=== PATIENT | female | born 1990 | race Caucasian/White ===

== ENCOUNTER 2023-09-14 17:31 | Inpatient (IN) | payer BC, SELFPAY ==
[2023-09-14 17:52] VITALS: BP 139/85; BMI 26.6
[2023-09-14] MEDS: LR 1000 IV (18:23)
[2023-09-14] MEDS: PENICILLIN 110 UNITS IV (18:23)
[2023-09-14 18:24] LABS: % Basophils 0.5 % (0-2); % Eosinophils 0.2 % (0-6); % Immature Granulocytes 0.3 % (0-0.5); % Lymphocytes 15.5 % (20.5-51.1); % Monocytes 5.6 % (1.7-9.3); % Neutrophils 77.9 % (42.2-75.2); Absolute Basophils 0.1 10^3/uL (0-0.2); Absolute Lymphocytes 1.7 10^3/uL (1.2-3.4); Absolute Monocytes 0.6 10^3/uL (0.1-0.6); Absolute Neutrophils 8.4 10^3/uL (1.4-6.5); Hematocrit 34.6 % (37.0-47.0); Hemoglobin 12.5 g/dL (12.0-16.0); Mean Corp Hgb Conc. 36.1 g/dL (33.0-37.0); Mean Corpuscular Hgb 30.2 pg (27.0-31.0); Mean Corpuscular Volume 83.6 fL (81.0-99.0); Mean Platelet Volume 10.5 fL (7.4-10.4); Nucleated Red Blood Cells % 0 %; Platelet Count 216 10^3/uL (130-400); Red Blood Cell Count 4.14 10^6/uL (4.20-5.40); White Blood Cell Count 10.8 10^3/uL (4.8-10.8)
[2023-09-14 18:55] LABS: ALT (SGPT) 14 U/L (0-35); AST (SGOT) 22 U/L (14-36); Albumin 3.7 g/dl (3.5-5.0); Alkaline Phosphatase 156 U/L (38-126); Blood Urea Nitrogen 8 mg/dl (7-17); Calcium 9.1 mg/dl (8.4-10.2); Estimated Creatinine Clearance 115 ml/min; Glucose 86 mg/dl (70-99); Total Bilirubin 0.5 mg/dl (0.2-1.3); Total Protein 6.7 g/dl (6.3-8.2); eGFR > 60.00
[2023-09-14 19:16] LABS: Carbon Dioxide 18 mmol/L (22-30); Chloride 105 mmol/L (98-107); Potassium 3.6 mmol/L (3.5-5.1); Sodium 132 mmol/L (135-145)
[2023-09-14] MEDS: SUBLIMAZE 100 MCG EPIDURAL (19:26)
[2023-09-15] MEDS: MOTRIN 600 MG PO ×3 (04:52→20:51)
[2023-09-15 05:03] LABS: Hematocrit 33.1 % (37.0-47.0); Hemoglobin 11.5 g/dL (12.0-16.0)
[2023-09-15] MEDS: TYLENOL 650 MG PO (14:24)
[2023-09-15] MEDS: PRENATAL PLUS PO (14:24)
[2023-09-15 14:34] LABS: Syphilis/T. pallidum Ab Reflex Negative (Negative)
[2023-09-16] MEDS: MOTRIN 600 MG PO (09:14)
[2023-09-16] MEDS: PRENATAL PLUS 1 TABLET PO (09:14)
== END 2023-09-16 11:53 | disposition home or self-care (01) | DRG 806 ==
LOC: LDRP 17:31
PROVIDERS: ADMITTING PHYSICIAN Obstetrics & Gynecology; FAMILY PHYSICIAN Family Medicine
PROC: 10E0XZZ Delivery of Products of Conception, External Approach (ICD-10-PCS; 2023-09-14)
DX: O99.824 Streptococcus B carrier state complicating childbirth (principal); O98.32 Other infections with a predominantly sexual mode of transmission complicating childbirth; Z37.0 Single live birth; Z3A.38 38 weeks gestation of pregnancy; O69.5XX0 Labor and delivery complicated by vascular lesion of cord, not applicable or unspecified; R03.0 Elevated blood-pressure reading, without diagnosis of hypertension; A63.0 Anogenital (venereal) warts; J45.909 Unspecified asthma, uncomplicated; Z80.3 Family history of malignant neoplasm of breast
CPT/HCPCS: 88307; 36415; 80053; 85014; 85018; 85025; 86780; 86850; 86900; 86901

== ENCOUNTER 2025-02-19 16:41 | Inpatient (IN) | payer BC, SELFPAY ==
[2025-02-19 16:52] VITALS: BP 130/89; BMI 25.4
[2025-02-19] MEDS: LR 1000 IV (17:15)
[2025-02-19 17:39] LABS: Hematocrit 34.8 % (37.0-47.0); Hemoglobin 11.8 g/dL (12.0-16.0); Mean Corp Hgb Conc. 33.9 g/dL (33.0-37.0); Mean Corpuscular Volume 82.7 fL (81.0-99.0); Nucleated Red Blood Cells % 0 %; Platelet Count 200 10^3/uL (130-400); Red Cell Dist. Width 13.9 % (11.5-14.5)
[2025-02-19] MEDS: PITOCIN 30 UNITS/NSS 500 ML IV (17:45)
[2025-02-19] MEDS: MOTRIN 600 MG PO (21:01)
[2025-02-19] MEDS: COLACE PO (21:02)
[2025-02-20 04:45] LABS: Hematocrit 30.7 % (37.0-47.0); Hemoglobin 10.8 g/dL (12.0-16.0)
[2025-02-20] MEDS: COLACE 100 MG PO (08:27)
[2025-02-20] MEDS: PRENATAL PLUS 1 TABLET PO (08:27)
[2025-02-20] MEDS: COLACE PO (19:46)
[2025-02-20] MEDS: MOTRIN 600 MG PO (19:49)
[2025-02-21] MEDS: PRENATAL PLUS 1 TABLET PO (09:47)
[2025-02-21] MEDS: COLACE PO ×2 (09:47→09:53)
[2025-02-21 13:50] LABS: Syphilis/T. pallidum Ab Reflex Negative (Negative)
== END 2025-02-21 11:04 | disposition home or self-care (01) | DRG 807 ==
LOC: LDRP 16:41
PROVIDERS: ADMITTING PHYSICIAN Obstetrics & Gynecology; FAMILY PHYSICIAN Family Medicine; REFERRING PHYSICIAN Obstetrics & Gynecology
PROC: 10E0XZZ Delivery of Products of Conception, External Approach (ICD-10-PCS; 2025-02-19)
DX: O48.0 Post-term pregnancy (principal); Z37.0 Single live birth; Z3A.40 40 weeks gestation of pregnancy; O99.824 Streptococcus B carrier state complicating childbirth
CPT/HCPCS: 36415; 85014; 85018; 85025; 86780; 86850; 86900; 86901